=== PATIENT | female | born 1965 | race African-American/Black ===

== ENCOUNTER 2017-09-27 06:27 | Emergency (ER) | payer OTHER, MEDICAID ==
[~2017-09-27] VITALS: Ht 154.9 cm; Wt 93.0 kg
[2017-09-27 08:08] LABS: KETONES URINE 2+ (NEGATIVE); LEUKOCYTE ESTERASE URINE 3+ (NEGATIVE); NITRITE URINE POSITIVE (NEGATIVE); OCCULT BLOOD URINE 3+ (NEGATIVE); PH URINE 5.5 (4.5-8.0); PROTEIN URINE 3+ (NEGATIVE); SPECIFIC GRAVITY URINE 1.012 (1.005-1.030)
[2017-09-27 08:24] LABS: CLARITY URINE TURBID (CLEAR); COLOR URINE BROWN (YELLOW)
[2017-09-27] MEDS ORDERED: LEVOFLOXACIN 750MG PREMIX 150 ML IV ONE (09:30)
[2017-09-27 09:50] VITALS: BP 150/88
== END 2017-09-27 10:40 | disposition home or self-care (01) ==
LOC: ER 06:27
DX: N39.0 Urinary tract infection, site not specified (principal); I10 Essential (primary) hypertension; E11.9 Type 2 diabetes mellitus without complications; Z88.2 Allergy status to sulfonamides; Z98.890 Other specified postprocedural states
CPT/HCPCS: 81001; 96365; 99284; J1956